=== PATIENT | male | born 1970 | race Caucasian/White ===

== ENCOUNTER 2023-05-28 16:52 | Emergency (ER) | payer BC ==
[~2023-05-28] VITALS: Ht 180.3 cm; Wt 97.7 kg
[2023-05-28 17:20] VITALS: TEMP 98.5
[2023-05-28] MEDS ORDERED: ipratropium/albuterol 3ml nebule NEB STA (17:29)
[2023-05-28] MEDS ORDERED: methylPREDNISolone sod succ 125mg/2ml vial IM ONE (17:30)
[2023-05-28 18:40] LABS: BASOPHILS # (AUTO) 0.1 X10'3 (0-0.2); BASOPHILS % (AUTO) 1.2 % (0-1); EOSINOPHILS # (AUTO) 0.3 X10'3 (0-0.9); EOSINOPHILS % (AUTO) 2.8 % (0-6); HEMATOCRIT 43.9 % (42.0-52.0); HEMOGLOBIN 15.2 g/dl (14.0-17.9); LYMPHOCYTES # (AUTO) 2.7 X10'3 (1.1-4.8); LYMPHOCYTES % (AUTO) 27.7 % (21-51); MEAN CORPUSCULAR HEMOGLOBIN 32.3 PG (27.0-31.0); MEAN CORPUSCULAR HGB CONC 34.6 g/dL (33.0-36.5); MEAN CORPUSCULAR VOLUME 93.3 FL (78-98); MEAN PLATELET VOLUME 8.1 FL (7.4-10.4); MONOCYTES # (AUTO) 0.9 X10'3 (0-0.9); MONOCYTES % (AUTO) 9.5 % (2-12); NEUTROPHILS # (AUTO) 5.7 X10'3 (1.8-7.7); NEUTROPHILS % (AUTO) 58.8 % (42-75); PLATELET COUNT 200 X10'3 (140-440); RED CELL DISTRIBUTION WIDTH 14.1 % (11.5-14.5); WHITE BLOOD COUNT 9.7 X10'3 (4.5-11.0)
[2023-05-28 18:45] VITALS: BP 164/103
[2023-05-28 18:51] LABS: ALANINE AMINOTRANSFERASE 79 U/L (12-78); ALBUMIN/GLOBULIN RATIO 1.4 (1.1-1.5); ALKALINE PHOSPHATASE 78 IU/L (46-116); ANION GAP 4 (8-16); ASPARTATE AMINO TRANSFERASE 42 U/L (10-37); BILIRUBIN,TOTAL 0.8 MG/DL (0.1-1.0); BLOOD UREA NITROGEN 12 MG/DL (7-18); BUN/CREATININE RATIO 11.7 (10.0-20.0); CALCIUM 8.6 MG/DL (8.5-10.1); CHLORIDE 105 MMOL/L (99-107); CREATININE 1.03 MG/DL (0.60-1.10); GLUCOSE 76 MG/DL (70-104); SODIUM 139 MMOL/L (135-145); TOTAL CARBON DIOXIDE 30.3 MMOL/L (24-32); TOTAL PROTEIN 6.9 G/DL (6.4-8.2); eCRCL 86 ML/MIN; eGFR 75 ML/MIN
[2023-05-28 18:57] LABS: PRO BRAIN NATRIURETIC PEPTIDE 42 PG/ML (0-125)
[2023-05-28 20:17] VITALS: PULSE 82; RESP 18; O2SAT 98
[2023-05-28 20:28] VITALS: PULSE 84; RESP 18; O2SAT 99
== END 2023-05-28 22:36 | disposition left against medical advice (07) ==
LOC: ER 16:53
DX: R05.8 Other specified cough (principal)
CPT/HCPCS: 36415; 71045; 80053; 83880; 84484; 85025; 93005; 94640; 96372; 99285; J2930; 94760

== ENCOUNTER → 2023-07-05 | Outpatient (CLI) | payer BC | END | disposition home or self-care (01) | LOC: RAD 10:54 | PROVIDERS: ATTEND Nurse Practitioner Family | DX: K21.9 Gastro-esophageal reflux disease without esophagitis (principal); R05.9 Cough, unspecified | CPT/HCPCS: 74220 ==